=== PATIENT | male | born 1990 | race Caucasian/White ===

== ENCOUNTER 2020-10-16 07:41 | Outpatient (CLI) | payer OTHER, SELFPAY | END 2020-10-16 07:42 | disposition home or self-care (01) | LOC: ANHAUDIO 07:44 | PROVIDERS: PCP Family Medicine; Visit Provider Otolaryngology | DX: H81.10 Benign paroxysmal vertigo, unspecified ear (principal) | CPT/HCPCS: 92540; 92546; 92567 ==